=== PATIENT | male | born 1980 | race American Indian/Alaskan Native ===

== ENCOUNTER 2019-01-29 11:14 | Emergency (ER) | payer SELFPAY ==
[2019-01-29 11:37] VITALS: BP 172/112
--- NOTE | 2019-01-29 11:47 | Emergency Department Report ---
ED Syncope HPI - General Chief Complaint: Altered Mental Status Stated Complaint: AMS Time Seen by Provider: 01/29/19 11:16 - History of Present Illness Initial Comments: 38-year-old male presents to the ED following a syncopal episode. EMS states patient was walking with his cousin when he passed out in the parking lot. EMS states patient did not answer any of their questions, however has been awake. Accu-Chek was normal. Upon initial presentation to ED, patient remained nonverbal, however, when attempting to hold the patient's eyes, patient actively squeezing them closed. When lifting both arms above his head on the patient controls the fall of his arms and does not allow his arms to hit his face. The nurse instructed patient that they would have to place a urinary catheter in order to obtain urine, patient then became verbal and refused. Patient then became awake and alert x 3, stated that he wanted to leave. States he's just under a lot of stress and does not want to stay. Patient reports he has a hist ory of hypertension, takes medication for his BP and "for my kidneys." Timing/Prior Episodes: single episode today Precipitating Factors: Positive: none Context: standing Loss of Consciousness: brief (seconds) Current Symptoms: back to normal - Related Data Allergies/Adverse Reactions: Allergies No Known Allergies Allergy (Verified 06/22/14 11:38) Home Medications: Ambulatory Orders hydroCHLOROthiazide [Hctz] 25 mg PO QDAY #30 tablet 06/19/14 Butalb/Acetamin/Caff 50-325-40 [Fioricet] 1 each PO Q6HR PRN #10 tablet 06/22/14 ED Review of Systems ROS: Stated complaint: AMS Other details as noted in HPI Comment: Unobtainable due to pts medical conditions (pt refuses to answer questions) ED Past Medical Hx - Past Medical History Hx Hypertension: Yes (no compliant) - Social History Smoking Status: Unknown if ever smoked - Medications Home Medications: Home Medications Medication Instructions Recorded Confirmed Last Taken Type hydroCHLOROthiazide [Hctz] 25 mg PO QDAY #30 tablet 06/19/14 Unknown Rx Butalb/Acetamin/Caff 50-325-40 1 each PO Q6HR PRN #10 tablet 06/22/14 Unknown Rx [Fioricet] ED Physical Exam - General Limitations: Altered Mental Status General appearance: alert, in no apparent distress - Head Head exam: Present: atraumatic, normocephalic - Eye Eye exam: Present: normal appearance - ENT ENT exam: Present: mucous membranes moist - Neck Neck exam: Present: normal inspection - Respiratory Respiratory exam: Present: normal lung sounds bilaterally. Absent: respiratory distress - Cardiovascular Cardiovascular Exam: Present: regular rate, normal rhythm - GI/Abdominal GI/Abdominal exam: Present: soft. Absent: distended, tenderness - Extremities Exam Extremities exam: Present: normal inspection - Neurological Exam Neurological exam: Present: alert, oriented X3, CN II-XII intact, normal gait. Absent: motor sensory deficit - Psychiatric Psychiatric exam: Present: normal affect, normal mood - Skin Skin exam: Present: warm, dry, intact, normal color ED Course Vital Signs 01/29/19 11:34 Pulse Rate 80 Respiratory 20 Rate Blood Pressure 172/112 O2 Sat by Pulse 98 Oximetry ED Medical Decision Making - EKG Data -: EKG Interpreted by Me EKG shows normal: sinus rhythm, axis, intervals, QRS complexes, ST-T waves Rate: normal - EKG Data Interpretation: no acute changes - Medical Decision Making 38 yo M presented to ED following syncopal episode. Initial exam consistent with malingering, as pt did not want to answer questions, resisted eye opening, and avoided hitting his face when arms lifted above head. Pt did not begin to converse until he was told by nurse that they were going to place urinary catheter. Pt then became awake and oriented x 3. Reported history of HTN and possible chronic kidney disease, and that he takes medications for both. Pt denies alcohol or drug abuse. Pt is not agitated or aggressive. Refuses to stay for further evaluation. EKG normal. Risks of leaving the ER explained to pt, including . Pt states he understands. AMA form signed by patient. Pt ambulated out o ER with steady gait. No neuro deficits on exam. - Differential Diagnosis drug abuse, dehydration, arrythmia Critical care attestation.: If time is entered above; I have spent that time in minutes in the direct care of this critically ill patient, excluding procedure time. ED Disposition Clinical Impression: Syncope Disposition: DC-07 LEFT AGAINST MED ADVICE Is pt being admited?: No Condition: Stable Instructions: Syncope (ED) Referrals: JOSE ALFREDO HERZOG MD [Primary Care Provider] - 3-5 Days Forms: AMA Form Time of Disposition: 11:56
== END 2019-01-29 11:44 | disposition left against medical advice (07) ==
LOC: ED 11:14
DX: R55 Syncope and collapse (principal); I10 Essential (primary) hypertension
CPT/HCPCS: 82962; 93005; 93010; 99283

== ENCOUNTER 2019-07-13 23:33 | Emergency (ER) | payer SELFPAY ==
[2019-07-14] MEDS ORDERED: HYDROcodone/ACETAMINOPHEN 5-325 MG TAB PO ONE (01:00)
[2019-07-14] MEDS ORDERED: IBUPROFEN 800 MG TAB PO ONE (01:00)
[2019-07-14] MEDS ORDERED: AMOXICILLIN 500 MG CAP PO ONE (01:01)
[2019-07-14 01:06] VITALS: BP 148/90
--- NOTE | 2019-07-14 01:59 | Emergency Department Report ---
HPI - General Chief Complaint: Dental/Oral Time Seen by Provider: 07/14/19 01:38 EDT - HPI HPI: This is a 38-year-old male here report that he is having right was some tooth pain 6 months. He said tonight it is unbearable. Pain is 10 out of 10 and feels achy and worse when he open his mouth or try to chew. Denies any fever or chills. Negative sore throat or drooling. Denies any swelling of tongue or difficulty breathing. Denies any cough, wheezing, nasal congestion. [id number] medication taken without any relief. Denies chest pain or shortness of breath. ED Past Medical Hx - Past Medical History Previous Medical History?: Yes Hx Hypertension: Yes (no compliant) - Surgical History Past Surgical History?: Yes - Family History Family history: hypertension - Social History Smoking Status: Current Every Day Smoker Substance Use Type: None - Medications Home Medications: Home Medications Medication Instructions Recorded Confirmed Last Taken Type hydroCHLOROthiazide [Hctz] 25 mg PO QDAY #30 tablet 06/19/14 Unknown Rx Butalb/Acetamin/Caff 50-325-40 1 each PO Q6HR PRN #10 tablet 06/22/14 Unknown Rx [Fioricet] Acetaminophen/Codeine [Tylenol 1 tab PO Q6H PRN #12 tab 07/14/19 Unknown Rx /Codeine # 3 tab] Amoxicillin [Amoxicillin TAB] 875 mg PO BID 10 Days #20 tablet 07/14/19 Unknown Rx Ibuprofen [Motrin] 800 mg PO Q8HR PRN #15 tablet 07/14/19 Unknown Rx ED Review of Systems ROS: Stated complaint: WISDOM TOOTH PAIN Other details as noted in HPI Constitutional: denies: chills, fever Eyes: denies: eye discharge ENT: dental pain. denies: ear pain, throat pain, congestion Respiratory: denies: cough, shortness of breath, wheezing Cardiovascular: denies: chest pain, palpitations, edema, syncope Gastrointestinal: denies: abdominal pain, nausea, vomiting Musculoskeletal: denies: back pain, joint swelling, arthralgia, myalgia Skin: denies: rash Neurological: denies: headache Physical Exam - Physical Exam Vital Signs: Vital Signs 07/14/19 00:13 Temperature 98.3 F Pulse Rate 65 Respiratory 18 Rate Blood Pressure 153/106 O2 Sat by Pulse 98 Oximetry Vital Signs 07/14/19 07/14/19 00:13 01:05 EST Temperature 98.3 F Pulse Rate 65 Respiratory 18 Rate Blood Pressure 153/106 Blood Pressure 148/90 [Left] O2 Sat by Pulse 98 Oximetry General: This is a 38-year-old female well-nourished well-developed in no acute distress. Physical Exam: Head: Normocephalic atraumatic Ears:BIateral TM pearly rm . Greg EAC with normal exam. No mastoid bone tenderness. Mouth: Moist, no pharyngeal erythema or exudate . Tongue is normal and oral airways patent. Uvula is midline. No abscess noted but noted dental tenderness around tooth #32. Noted dental cavities to teeth without any pulp exposure. Lip is normal. Neck: Nontender to palpate, supple, normal range of motion. No adenopathy. No c- spine tenderness. Nose: Bilateral nasal mucosa normal exam maxillary and frontal sinuses non- tender to palpate. Eyes: Bilateral Sclerae and conjunctiva without injection. Bilateral pupils equal and reactive to light. Lungs: Clear to auscultate bilaterally, no rhonchi wheezes or rales. Normal work of breathing and no chest wall tenderness CV: S1, S2. Regular rate and rhythm negative murmur. Capillary refill is less than 3 seconds Abdomen: Nontender to palpation in all quadrants: No guarding or rebound tenderness. Positive bowel sounds in all quadrants Extremity: No clubbing, cyanosis or edema. +2 pulses in all extremities and no neurovascular compromise Skin: Clean dry and intact, no rashes or lesions ED Course Vital Signs 07/14/19 00:13 Temperature 98.3 F Pulse Rate 65 Respiratory 18 Rate Blood Pressure 153/106 O2 Sat by Pulse 98 Oximetry Vital Signs 07/14/19 07/14/19 00:13 01:05 EST Temperature 98.3 F Pulse Rate 65 Respiratory 18 Rate Blood Pressure 153/106 Blood Pressure 148/90 [Left] O2 Sat by Pulse 98 Oximetry - Reevaluation(s) Reevaluation #1: 07/14/19 01:08 EST Patient given [place] 5/325 2 tablets by mouth, amoxicillin 500 mg by mouth and Motrin 800 mg by mouth to treat pain and gingivitis with toothache. He stable and in no acute distress. ED Medical Decision Making - Medical Decision Making This is a 38-year-old male here for toothache to tooth #32 and was found to have tenderness around tooth #32 with some cavities and also mild gingivitis. Dental care discussed the patient and I told them about [facility] and he needs to follow-up with them to call on Monday to schedule appointment. Patient was started on antibiotic and pain medication emergency room and given prescription for amoxicillin, Tylenol No. 3 and Motrin and he will follow-up with [facility] dental clinic. Discharged home with his family member in stable condition. Pain is controlled Critical care attestation.: If time is entered above; I have spent that time in minutes in the direct care of this critically ill patient, excluding procedure time. ED Disposition Clinical Impression: Dental cavities, Toothache, Gingivitis Disposition: TO HOME OR SELFCARE Is pt being admited?: No Does the pt Need Aspirin: No Condition: Stable Instructions: Dental Caries (ED), Toothache (ED), Gingivitis (ED) Additional Instructions: These follow up with dentist as instructed. See information on discharge instruction paperwork. Take medication as prescribed but please do not take Tylenol 3 [address] or operating heavy machinery at this medication causes drowsiness. Prescriptions: Amoxicillin [Amoxicillin TAB] 875 mg PO BID 10 Days #20 tablet Ibuprofen [Motrin] 800 mg PO Q8HR PRN #15 tablet PRN Reason: mild to moderate pain Acetaminophen/Codeine [Tylenol /Codeine # 3 tab] 1 tab PO Q6H PRN #12 tab PRN Reason: moderate to severe pain Referrals: [facility] [Outside] - 2-3 Days Forms: Work/School Release Form(ED)
== END 2019-07-14 01:40 | disposition home or self-care (01) ==
LOC: ED 23:33
DX: K02.7 Dental root caries (principal); K05.10 Chronic gingivitis, plaque induced; I10 Essential (primary) hypertension; F17.200 Nicotine dependence, unspecified, uncomplicated
CPT/HCPCS: 99282

== ENCOUNTER 2019-07-25 21:18 | Emergency (ER) | payer SELFPAY ==
--- NOTE | 2019-07-25 21:34 | Emergency Department Report ---
ED General Adult HPI - General Stated complaint: SYNCOPE/HTN Time Seen by Provider: 07/25/19 21:28 Source: patient, EMS - History of Present Illness Initial comments: The patient presents to the emergency department via EMS for syncopal episode [place] a gas station. Upon their arrival vital signs were checked and the patient's blood pressure was 200/132. Upon the patient's arrival he stated that he did not want to be here and was going to leave. The patient states that he takes his hypertension medicines at home and does not need to be here. -: Sudden Improves with: none Worsens with: none Associated Symptoms: denies other symptoms Treatments Prior to Arrival: none - Related Data Previous Rx's Medication Instructions Recorded Last Taken Type hydroCHLOROthiazide [Hctz] 25 mg PO QDAY #30 tablet 06/19/14 Unknown Rx Butalb/Acetamin/Caff 50-325-40 1 each PO Q6HR PRN #10 tablet 06/22/14 Unknown Rx [Fioricet] Acetaminophen/Codeine [Tylenol 1 tab PO Q6H PRN #12 tab 07/14/19 Unknown Rx /Codeine # 3 tab] Amoxicillin [Amoxicillin TAB] 875 mg PO BID 10 Days #20 tablet 07/14/19 Unknown Rx Ibuprofen [Motrin] 800 mg PO Q8HR PRN #15 tablet 07/14/19 Unknown Rx Allergies Allergy/AdvReac Type Severity Reaction Status Date / Time No Known Allergies Allergy Verified 06/22/14 11:38 ED Review of Systems ROS: Stated complaint: SYNCOPE/HTN Other details as noted in HPI Comment: Unobtainable due to pts medical conditions ED Past Medical Hx - Past Medical History Hx Hypertension: Yes (no compliant) - Social History Smoking Status: Current Every Day Smoker Substance Use Type: None - Medications Home Medications: Home Medications Medication Instructions Recorded Confirmed Last Taken Type hydroCHLOROthiazide [Hctz] 25 mg PO QDAY #30 tablet 06/19/14 Unknown Rx Butalb/Acetamin/Caff 50-325-40 1 each PO Q6HR PRN #10 tablet 06/22/14 Unknown Rx [Fioricet] Acetaminophen/Codeine [Tylenol 1 tab PO Q6H PRN #12 tab 07/14/19 Unknown Rx /Codeine # 3 tab] Amoxicillin [Amoxicillin TAB] 875 mg PO BID 10 Days #20 tablet 07/14/19 Unknown Rx Ibuprofen [Motrin] 800 mg PO Q8HR PRN #15 tablet 07/14/19 Unknown Rx ED Physical Exam - General General appearance: alert - Head Head exam: Present: atraumatic, normocephalic - Eye Eye exam: Present: normal appearance - ENT ENT exam: Present: mucous membranes moist - Extremities Exam Extremities exam: Present: normal inspection - Neurological Exam Neurological exam: Present: alert, altered, oriented X3, CN II-XII intact. Absent: motor sensory deficit - Psychiatric Psychiatric exam: Present: normal affect, normal mood ED Medical Decision Making - Medical Decision Making The patient refused to be evaluated for a medical emergency and decided that he wanted to leave I discussed with the patient that with his blood pressure being 220/132 with a syncopal episode that a medical workup was warranted for concerns of a head bleed or an acute stroke. Patient states" this is Bullshit" since I do not want to be here economically stay. I informed the patient of his medical risks which include long-term per minute disability, , severe illness and patient still decided to leave AGAINST MEDICAL ADVICE Critical care attestation.: If time is entered above; I have spent that time in minutes in the direct care of this critically ill patient, excluding procedure time. ED Disposition Clinical Impression: Syncope and collapse, Hypertension Disposition: DC-07 LEFT AGAINST MED ADVICE Is pt being admited?: No Does the pt Need Aspirin: No Condition: Stable Instructions: Syncope (ED), Hypertension (ED) Forms: AMA Form Time of Disposition: 21:33
[2019-07-25 22:04] VITALS: BP 180/112
== END 2019-07-25 22:30 | disposition left against medical advice (07) ==
LOC: ED 21:18
DX: R55 Syncope and collapse (principal); I10 Essential (primary) hypertension; F17.200 Nicotine dependence, unspecified, uncomplicated; Z79.899 Other long term (current) drug therapy